=== PATIENT | female | born 1985 | race Caucasian/White ===

== ENCOUNTER 2017-07-26 03:06 | Emergency (ER) | payer OTHER ==
[2017-07-26] MEDS ORDERED: Ketorolac INJ* 30 MG/ML 1 ML VIAL IV PUSH ONE (03:36)
[2017-07-26] MEDS ORDERED: Morphine VIAL* 10 MG/ML 1 ML VIAL IV ONE (03:37)
[2017-07-26] MEDS ORDERED: Metoclopramide IV* 5 MG/ML 2 ML VIAL IV SLOW PU ONE (03:37)
[2017-07-26] MEDS ORDERED: Morphine INJ* 2 MG/ML 1 ML CARPUJECT ONE (03:41)
[2017-07-26] MEDS ORDERED: NS 0.9% 1000 ML* 1,000 ML IV ONE (03:47)
[2017-07-26 03:48] LABS: ABS Basophils 0.1 10^3/ul (0-0.2); ABS Eosinophils 0.3 10^3/ul (0-0.6); ABS Lymphocytes 4.6 10^3/ul (1.0-4.8); ABS Monocytes 0.8 10^3/ul (0-0.8); ABS Neutrophils 4.1 10^3/ul (1.5-7.7); ABS Nucleated RBC 0 10^3/ul; Eosinophil % 3.5 % (0-6); Hematocrit 39 % (35-47); Hemoglobin 13.4 g/dl (12.0-16.0); Lymphocyte % 46.2 % (25-47); Mean Corpuscular HGB Conc 34 g/dl (31-36); Mean Corpuscular Hemoglobin 30 pg (27-31); Mean Corpuscular Volume 89 fL (80-97); Mean Platelet Volume 8.4 um3 (7.4-10.4); Nucleated Red Blood Cells % 0.1; Platelet Count 289 10^3/ul (150-450); Red Blood Count 4.44 10^6/ul (4.0-5.4); Red Cell Distribution Width 13 % (10.5-15); White Blood Count 9.9 10^3/ul (3.5-10.8)
[2017-07-26 04:06] LABS: EGFR Non-African American 102.3 (>60)
--- NOTE | 2017-07-26 05:34 | ED ---
Naa Mejia Julia, scribed for Romario Montemayor MD on 07/26/17 at 0322 . Abdominal Pain/Female - HPI Summary HPI Summary: This patient is a 31 year old M presenting to [facility] with a chief complaint of RLQ abdominal pain for the past 45 minutes. Pt states the pain woke her from sleep. Patient reports nausea. Patient denies urinary symptoms and radiating pain. The patient rates the pain 10/10 in severity. Symptoms are similar to previous ovarian cyst rupture. Pt has had IUD for less than a year. She states her LNMP was about a week ago, but are generally irregular due to the IUD. Pt denies sexual activity. - History of Current Complaint Chief Complaint: EDAbdPain Stated Complaint: ABD PAIN Time Seen by Provider: 07/26/17 03:16 Hx Obtained From: Patient Onset/Duration: Sudden Onset, Lasting Minutes Timing: Constant Severity Initially: Severe Pain Intensity: 10 Pain Scale Used: 0-10 Numeric Location: Discrete At: RLQ, Suprapubic Radiates: No Associated Signs and Symptoms: Positive: Nausea. Negative: Urinary Symptoms Allergies/Adverse Reactions: Allergies Allergy/AdvReac Type Severity Reaction Status Date / Time oxycodone Allergy Vomiting Verified 07/26/17 03:10 PMH/Surg Hx/FS Hx/Imm Hx Endocrine/Hematology History: Denies: Hx Diabetes Cardiovascular History: Denies: Hx Hypertension, Hx Pacemaker/ICD History: Reports: Other Problems/Disorders - ovarian cysts Denies: Hx Renal Disease Sensory History: Denies: Hx Hearing Aid Psychiatric History: Reports: Hx Panic Disorder - ANXIETY - Surgical History Surgery Procedure, Year, and Place: RIGHT WRIST ARTHROSCOPY 05/2015. RIGHT SHOULDER ARTHROSCOPY 02/2004 Infectious Disease History: No Infectious Disease History: Denies: Traveled Outside the [place] in Last 30 Days - Social History Alcohol Use: Occasionally Review of Systems Positive: Abdominal Pain, Nausea Positive: no symptoms reported All Other Systems Reviewed And Are Negative: Yes Physical Exam - Summary Physical Exam Summary: VITAL SIGNS: Reviewed. GENERAL: Patient is a well-developed and nourished female who is lying comfortable in the stretcher. Patient is not in any acute respiratory distress. HEAD AND FACE: No signs of trauma. No ecchymosis, hematomas or skull depressions. No sinus tenderness. EYES: PERRLA, EOMI x 2, No injected conjunctiva, no nystagmus. EARS: Hearing grossly intact. Ear canals and tympanic membranes are within normal limits. MOUTH: Oropharynx within normal limits. NECK: Supple, trachea is midline, no adenopathy, no JVD, no carotid bruit, no c- spine tenderness, neck with full ROM. CHEST: Symmetric, no tenderness at palpation LUNGS: Clear to auscultation bilaterally. No wheezing or crackles. CVS: Regular rate and rhythm, S1 and S2 present, no murmurs or gallops appreciated. ABDOMEN: Soft. Right pelvic area tenderness. No signs of distention. No rebound no guarding, and no masses palpated. Bowel sounds are normal. EXTREMITIES: FROM in all major joints, no edema, no cyanosis or clubbing. NEURO: Alert and oriented x 3. No acute neurological deficits. Speech is normal and follows commands. SKIN: Dry and warm Triage Information Reviewed: Yes Vital Signs On Initial Exam: Initial Vitals Temp Pulse Resp BP Pulse Ox 97.3 F 100 20 159/85 98 07/26/17 03:07 07/26/17 03:07 07/26/17 03:07 07/26/17 03:07 07/26/17 03:07 Vital Signs Reviewed: Yes Diagnostics - Vital Signs Vital Signs Temp Pulse Resp BP Pulse Ox 07/26/17 03:07 97.3 F 100 20 159/85 98 - Laboratory Result Diagrams: 07/26/17 03:21 07/26/17 03:21 Lab Statement: Any lab studies that have been ordered have been reviewed, and results considered in the medical decision making process. - Additional Comments Diagnostic Additional Comments: A Pelvic US reveals: 5.9cm slightly complex right ovarian cyst, possibly hemorrhagic in nature, with minimal free fluid but no torsion. ED Physician has reviewed this report. Re-Evaluation - Re-Evaluation 1 Re-Evaluation Time: 05:00 Change: Improved - Pt is feeling better. Pt will be discharged. Abdominal Pain Fem Course/Dx - Course Course Of Treatment: Pt presents with RLQ pain similar to previous ovarian cyst symptoms. A Pelvic US reveal a 5.9cm right ovarian cyst. Pt is given Morphine, Reglan, IV fluids, and Toradol. Pt feels better while in ED. Pt will be discharged and is instructed to follow up with a OB physician. - Diagnoses Provider Diagnoses: Right ovarian cyst Discharge - Sign-Out/Discharge Documenting (check all that apply): Discharge - Discharge Plan Condition: Stable Disposition: HOME Prescriptions: Ibuprofen TAB* [Motrin TAB* 800 MG] 800 mg PO Q6H PRN #30 tab PRN Reason: Pain oxyCODONE/Acetamin 5/325 MG* [Percocet 5/325 TAB*] 1 tab PO Q6H PRN #14 tab MDD 4 PRN Reason: Pain Patient Education Materials: Ovarian Cyst (ED) Referrals: Misti Marmolejo MD [Medical Doctor] - 3 Days (Follow up with this OB physician in 2-3 days.) Additional Instructions: RETURN TO THE EMERGENCY DEPARTMENT FOR CHANGING OR WORSENING SYMPTOMS. The documentation as recorded by the Naa darnell Julia accurately reflects the service I personally performed and the decisions made by Sim villaseñor Abdul, MD.
[2017-07-26 06:12] VITALS: BP 124/58
--- NOTE | 2017-07-26 11:59 | RAD ---
INDICATION: Right pelvic pain COMPARISON: None. TECHNIQUE: Real-time transabdominal only ultrasound examination of the female pelvis including grayscale and Doppler color flow imaging. FINDINGS: Uterus: The uterus is normal in size and echogenicity measuring 8.8 x 3.4 x 5.3 cm. The endometrial stripe is smooth and uniform measuring 6 mm in thickness. The intrauterine device appears to be appropriately positioned at the fundal height uterus. Ovaries: The right and left ovary measure 7.0 x 4.6 x 6.8 cm and 2.0 x 2.9 x 3.5 cm, respectively. Normal arterial and venous waveforms are identified. Within the right ovary there is a large anechoic and avascular structure with scattered internal echogenic foci measuring 5.9 x 5.3 x 4.4 cm. There is no free fluid in the cul-de-sac. IMPRESSION: Within the right ovary there is a mostly anechoic and avascular structure measuring 5.9 cm in greatest dimension. In a woman of this age this is most likely a large ovarian follicle. Follow-up ultrasound in approximately 6 weeks can be acquired to ascertain resolution.
== END 2017-07-26 06:12 | disposition home or self-care (01) ==
LOC: ED 03:06
DX: R10.31 Right lower quadrant pain (principal); N83.201 Unspecified ovarian cyst, right side
CPT/HCPCS: 36415; 76856; 80053; 83605; 84702; 85025; 86140; 96374; 96375; 99283; J1885; J2270; J2765